=== PATIENT | female | born 1980 | race Caucasian/White ===

== ENCOUNTER → 2016-11-17 | Outpatient (CLI) | payer OTHER ==
[~2016-11-17] MED LIST: ALLEGRA ALLERG180 MG PO; BACTRIM DS TAB1 EACH PO; CLEOCIN HCL150 MG PO; KEFLEX500 MG PO; TRINATE TABLET1 TAB PO; ZYRTEC10 M5 PO
== END ==
LOC: ULTRA 12:49
DX: Z34.82 Encounter for supervision of other normal pregnancy, second trimester (principal); Z3A.21 21 weeks gestation of pregnancy

== ENCOUNTER → 2017-03-05 | Outpatient (CLI) | payer OTHER | LOC: ULTRA 14:06 | DX: Z34.83 Encounter for supervision of other normal pregnancy, third trimester (principal); Z3A.39 39 weeks gestation of pregnancy ==